=== PATIENT | female | born 1955 | race Caucasian/White ===

== ENCOUNTER → 2019-06-25 | Outpatient (CLI) | payer MEDICARE ==
--- NOTE | 2019-07-02 15:07 | REP ---
DIGITAL DIAGNOSTIC BILATERAL MAMMOGRAPHY WITH CAD, 3D TOMOGRAPHY, AND BILATERAL BREAST SONOGRAPHY: HISTORY: Palpable bilateral axillary lymph node. Right breast mass 6-o'clock position 3 cm from the nipple, palpable mass left breast 8-o'clock position, 4 cm from the nipple. Comparison mammography has been retrieved from [facility], [place] dated July 27, 2018. MAMMOGRAPHIC FINDINGS: Skin markers are affixed to the skin at the site of the palpable lump in the right breast projecting near the axillary tail region. Routine views are augmented by magnified focal spot compression views and 3D tomography. A skin marker is affixed to the skin in the left breast far laterally which is barely visible on mammography. Magnified views of the left breast are also obtained. The breast parenchyma is bilaterally and completely fat replaced. There is no dominant density at the site of either palpable mass or elsewhere in either breast mammographically. No architectural distortion, asymmetric density, microcalcification, or worrisome skin changes appreciated. SONOGRAPHIC FINDINGS: In the right breast at 6-o'clock position in the area of the palpable abnormality, normal breast stroma is seen sonographically. In the right axilla there is a 1.5 x 1.2 x 0.9 cm normal-appearing lymph node. This has a thin cortical margin and a largely hyperechoic fat replaced appearance. Left breast is scanned in the 8-o'clock position at the site of the palpable lump. Normal stromal elements are seen sonographically. In the axilla in the area of the patient's pain, there is no abnormality. Superiorly in the axilla there are two normal-appearing lymph nodes. These measure as follows: 2.2 x 0.8 x 1.3 cm and 1.0 x 0.6 x 1.0 cm. These are both predominately fat replaced with a very thin cortical mantel. IMPRESSION: BIRADS 2: BI-RADS/ACR category 2 mammogram. Benign Findings. BIRADS category 2 benign findings. Clinical followup is advised. This mammogram was interpreted with the aid of an FDA-approved computer-aided detection system. The patient states she had a clinical breast exam in May 2019 The patient letter being requested is M2. This patient's estimated Tyrer-zick lifetime risk assessment for breast cancer is 7.3 %. Electronically Signed by Cesar Tristan MD 07/02/2019 03:46 P
== END ==
LOC: M WHC 12:44
PROVIDERS: ATTEND Surgery
DX: Z12.31 Encounter for screening mammogram for malignant neoplasm of breast (principal); N63.15 Unspecified lump in the right breast, overlapping quadrants; N63.24 Unspecified lump in the left breast, lower inner quadrant; R59.0 Localized enlarged lymph nodes
CPT/HCPCS: 76642; 77066; G0279

== ENCOUNTER → 2019-10-16 | Outpatient (CLI) | payer MEDICARE ==
--- NOTE | 2019-10-16 14:41 | REP ---
BILATERAL BREAST ULTRASOUND: Bilateral breast ultrasound performed for reported palpable abnormalities right breast 10 to 11-o'clock position and left breast 8 to 11-o'clock position. Scanning through these regions demonstrates no evidence of cystic or solid mass sonographically. Incidental note is made of a right axillary lymph node with a thin hypoechoic cortex and an echogenic fatty hilum, measuring 2.6 x 1.1 x 2.2 cm. IMPRESSION: ACR 2 benign. No mass seen at the site of the reported palpable abnormalities right breast 10 to 11-o'clock position and left breast 8 to 11-o'clock position. Clinical correlation and followup recommended.
== END ==
LOC: M WHC 11:11
PROVIDERS: ATTEND Surgery
DX: N63.10 Unspecified lump in the right breast, unspecified quadrant (principal)

== ENCOUNTER → 2020-09-07 | Outpatient (CLI) | payer MEDICARE ==
--- NOTE | 2020-09-07 12:15 | REPMRS ---
Patient History The patient states she had a clinical breast exam in September 2019. Patient is postmenopausal. Family history of breast cancer in maternal aunt. 29 lb intentional weight loss. Pfizer vaccine #1 06/17/20 left arm. #2 07/08/20 left arm. Patient states no breast complaints today. Patient has signed MRS History Sheet. Digital Woman Screen Mammo: September 07, 2020 - Exam #: [id number] Bilateral CC and MLO view(s) were taken. Technologist: RT Dioni Prior study comparison: June 25, 2019, diagnostic bilateral mammo performed at [facility]. July 27, 2018, bilateral digital woman screen mammo, performed at [facility]. July 26, 2017, bilateral digital woman screen mammo, performed at [facility]. FINDINGS: The breast tissue is almost entirely fat. The Volpara volumetric breast density category is: A. There has been no change in the appearance of the mammogram from the prior studies. There is no interval development of dominant mass, architectural distortion, or grouped microcalcification typical of malignancy. 3-D tomosynthesis shows no additional findings. Assessment: BI-RADS/ACR category 1 mammogram. Negative Mammogram. Recommendation Routine screening mammogram of both breasts in 1 year (for women over age 40). This patient's [facility] Lifetime Breast Cancer RIsk is estimated at 7.0 %. This mammogram was interpreted with the aid of an FDA-approved computer-aided dectection system. Electronically Signed By: Rashad Tristan MD 09/07/20 [id number]
== END ==
LOC: M WHC 11:27
PROVIDERS: ATTEND Surgery
DX: Z12.31 Encounter for screening mammogram for malignant neoplasm of breast (principal)

== ENCOUNTER → 2021-09-29 | Outpatient (CLI) | payer MEDICARE | LOC: M WHC 12:49 | PROVIDERS: ATTEND Family Medicine | DX: Z12.31 Encounter for screening mammogram for malignant neoplasm of breast (principal) ==